=== PATIENT | male | born 1955 | race Caucasian/White ===

== ENCOUNTER 2016-05-24 11:14 | Day surgery (SDC) | payer BC ==
[~2016-05-24 11:14] MED LIST: CHLORHEXIDINE GLUC HIBICLENS 118 ML BTL TP ONE; ceFAZolin 2 GM/DEXTROSE 100 ML IV ONE
[2016-05-24] MEDS ORDERED: LIDOCAINE 1% 5 ML SDV ONE (12:01)
[2016-05-24] MEDS ORDERED: CEFAZOLIN 2 GM/DEXTROSE/100 ML BAG IV ONE (12:01)
[2016-05-24] MEDS ORDERED: MIDAZOLAM 2 MG/2 ML VIAL ONE (12:17)
[2016-05-24] MEDS ORDERED: BACITRACIN 50,000 UNITS/10 ML SYR IRR ONE (12:20)
[2016-05-24] MEDS ORDERED: ROPIVACAINE HCL 20 MG/10 ML INJ EP ONE (12:20)
[2016-05-24] MEDS ORDERED: ROPIVACAINE HCL 150 MG/30 ML INJ ONE (12:20)
[2016-05-24] MEDS ORDERED: LIDOCAINE 2% 5 ML SDV ONE (12:21)
[2016-05-24] MEDS ORDERED: LR 1,000 ML IV ONE (12:22)
[2016-05-24] MEDS ORDERED: LIDOCAINE 1% 5 ML SDV ID PRN (12:22)
[2016-05-24] MEDS ORDERED: PROPOFOL/EMULSION 500 MG/50 ML BOTTLE IV ONE ×2 (12:27→13:23)
[2016-05-24] MEDS ORDERED: LIDOCAINE 2% 100 MG/5 ML SYR IVP ONE (12:29)
[2016-05-24] MEDS ORDERED: BUPIVACAINE 0.25% 30 ML SDV ONE (12:41)
[2016-05-24] MEDS ORDERED: LIDOCAINE 2% JELLY 5 ML TUBE ONE (12:44)
[2016-05-24] MEDS ORDERED: KETOROLAC 30 MG/1 ML SDV ONE (14:51)
--- NOTE | 2016-05-24 15:41 | DX ---
Foot 2 Views Right portable History: Postop hallux rigidus. Findings: There is osteotomy distal shaft right first metatarsal with 2 small caliber screws in posit ion at the osteotomy. There is good alignment. Joint spaces appear relatively normal. There is some s oft tissue swelling adjacent to the distal head of the first metatarsal as expected. No significant g as is seen in the soft tissues. The lateral sesamoid appears to be bifid the base of the distal head first metatarsal. Impression: Small caliber screws associated with osteotomy distal shaft right first metatarsal with g ood alignment.
--- NOTE | 2016-05-25 12:07 | GOP ---
[f rep st] OPERATIVE REPORT DATE OF OPERATION: 05/24/2016 SURGEON: Radha Bustos DPM [employer] OPERATOR: Charmaine Bustos DPM ANESTHESIA: MAC, light sedation. ANESTHESIOLOGIST: Anand Medrano MD PREOPERATIVE DIAGNOSIS: Hallux rigidus, right foot. POSTOPERATIVE DIAGNOSIS: Hallux rigidus, right foot, osteoarthritis. PROCEDURE PERFORMED: 1st metatarsal osteotomy, tilt-back type, with screw fixation, right foot. FINDINGS: INDICATIONS: Significant pain, progressively getting worse on a day-to-day basis. At this time, the patient would like to proceed with surgery. DESCRIPTION OF PROCEDURE: The patient was brought into the operating room, placed on the operating t able in the supine position. Intravenous sedation administered by the anesthesiologist. A posterior t ibial and peripheral nerve block obtained, utilizing a total of 12 cc of 2% Marcaine, 6 cc of 0.2% ro pivacaine plain. The lower extremity was prepped and draped in the usual sterile manner. After the li mb had been elevated, it was exsanguinated with an Esmarch bandage. An ankle tourniquet inflated to 2 30 mmHg, and the procedure was performed. Webril padding utilized under the ankle cuff. Attention was directed towards the dorsal medial aspect of the 1st metatarsophalangeal joint, where a linear incision was created. Incision was carefully deepened with care of neurovascular structures, and clamped and cauterized bleeders. Linear capsulotomy performed, exposing the 1st metatarsophalange al joint, which had a significant spurring noted dorsally and osteophytes along the dorsal aspect of the base of the proximal phalanx. Osteophytes resected with a rongeur and sagittal saw was utilized t o remove the bony eminence. It was surprising since on the preoperative x-rays, it was not so promine nt. Advanced degenerative joint disease was noted, with 75% of the cartilage on the 1st metatarsal he ad absent; on the dorsal, medial, and central aspects, bone exposed; and along the dorsal 30% to 35% of the base of the proximal phalanx cartilage was absent. After osteophytes and bone spurs resected, sagittal saw utilized to smoothen dorsal aspect of the base of the proximal phalanx. Microfracture pe rformed of the 1st metatarsal head. Then, utilizing a K-wire as an axis guide and C-arm to verify ali gnment, tilt-back osteotomy was created with the apex being distal to the level of the sesamoids, irvin ntar aspect of the 1st metatarsal head with the base being proximal dorsal to the apex, base measurin g approximately 4-5 mm in width. Wedge of bone was resected, and then to allow the 1st metatarsal to tilt backward, K-wire was utilized along the plantar aspect of a hinge to allow for flexibility to cl ose the osteotomy, which was then achieved very nicely, leaving that plantar cortex intact. Temporary fixation achieved with K-wires, and utilizing the Arthrex headless 2.5 screws, osteotomy was stabili zed, both screws measuring 18 mm in length. C-arm utilized throughout to verify alignment and positio crystal. At this time, with hallux range of motion, improved motion noted, no impingement, smooth glidin g. Wound copiously irrigated with bacitracin irrigation solution. Capsular closure achieved with 2-0 and 3-0 Vicryl. Tourniquet was released, and a normal hyperemic response was noted to all digits. No abnormal bleeders. Subcutaneous closure achieved with 4-0 Monocryl, and the skin was closed with 4-0 Prolene in a horizontal and interrupted suture fashion. Dressings included Xeroform, 4 x 4's, fluffs, Michelle reinforced with tape, and an Pietro bandage. The patient tolerated the procedure and anesthesia well, and left the operating room with vital signs stable and vascular status intact to all digits. There were no intraoperative complications. No spec imen sent to Pathology. No additional injectables. In postoperative recovery, the patient was doing well. I reviewed with his the findings. Finding s were much more advanced than anticipated. Fusion would have been warranted; however, with this type of osteotomy, often do see improvement. He may bear full weight on the foot. He is to follow up at o office in the next few days for postop check. Prognosis good. /[id number]/MODL
== END 2016-05-24 16:25 | disposition home or self-care (01) ==
LOC: FSGY 11:14
PROVIDERS: ATTEND Podiatrist
PROC: 0SNM0ZZ Release Right Metatarsal-Phalangeal Joint, Open Approach (ICD-10-PCS; 2016-05-24)
PROC: 0SB Lower Joints, Excision (ICD-10-PCS; 2016-05-24)
PROC: 0SGM04Z Fusion of Right Metatarsal-Phalangeal Joint with Internal Fixation Device, Open Approach (ICD-10-PCS; principal; 2016-05-24 12:30)
DX: M20.21 Hallux rigidus, right foot (principal); M25.774 Osteophyte, right foot; E78.5 Hyperlipidemia, unspecified; G62.9 Polyneuropathy, unspecified; E03.9 Hypothyroidism, unspecified
CPT/HCPCS: 28289; 73620; C1769; C1713; J0690; J1885; J2001; J2250; J2704; J2795